=== PATIENT | male | born 1985 | race Two or more races ===

== ENCOUNTER 2017-11-02 06:01 | Day surgery (SDC) | payer OTHER ==
[2017-10-26 09:51] LABS: APPEARANCE,URINE CLEAR; BILIRUBIN,URINE NEGATIVE (NEGATIVE); COLOR,URINE YELLOW; GLUCOSE, URINE NEGATIVE (NEGATIVE); KETONES,URINE NEGATIVE (NEGATIVE); LEUKOCYTE ESTERASE,URINE NEGATIVE (NEGATIVE); NITRITE,URINE NEGATIVE (NEGATIVE); PROTEIN,URINE NEGATIVE (NEGATIVE); UROBILINOGEN,URINE NEGATIVE mg/dL (<2.0)
[2017-10-26 09:51] LABS: ABSOLUTE BASOPHILS # (AUTO) 0.1 10^3/uL (0.0-0.2); ABSOLUTE EOSINOPHILS # (AUTO) 0.2 10^3/uL (0.0-0.6); ABSOLUTE LYMPHOCYTES (AUTO) 3.3 10^3/uL (0.5-4.7); ABSOLUTE NEUT (AUTO) 4.5 10^3/uL (1.7-8.2); BASOPHILS % (AUTO) 0.6 % (0-2); EOSINOPHILS % (AUTO) 2.2 % (0-6); HEMATOCRIT 44.5 % (37.9-51.0); HEMOGLOBIN 15.2 g/dL (13.5-17.0); LYMPHOCYTES % (AUTO) 36.6 % (13-45); MEAN CORPUSCULAR HEMOGLOBIN 27.4 pg (27.0-33.4); MEAN CORPUSCULAR HGB CONC 34.2 g/dL (32.0-36.0); MEAN CORPUSCULAR VOLUME 80 fl (80-97); MONOCYTES % (AUTO) 10.8 % (3-13); PLATELET COUNT 283 10^3/uL (150-450); RED BLOOD COUNT 5.55 10^6/uL (4.35-5.55); RED CELL DISTRIBUTION WIDTH 13.3 % (11.5-14.0); SEGMENTED NEUTROPHILS % (AUTO) 49.8 % (42-78); TOTAL CELLS COUNTED % (AUTO) 100 %
[2017-10-26 10:18] LABS: ALANINE AMINOTRANSFERASE 44 U/L (21-72); ALBUMIN 4.2 g/dL (3.5-5.0); ALKALINE PHOSPHATASE 43 U/L (38-126); ANION GAP 11 (5-19); ASPARTATE AMINO TRANSFERASE 22 U/L (17-59); BILIRUBIN,DIRECT 0.4 mg/dL (0.0-0.4); BILIRUBIN,TOTAL 0.6 mg/dL (0.2-1.3); BLOOD UREA NITROGEN 26 mg/dL (7-20); CALCIUM 10.1 mg/dL (8.4-10.2); CARBON DIOXIDE 28 mmol/L (22-30); CHLORIDE 101 mmol/L (98-107); GLUCOSE 83 mg/dL (75-110); POTASSIUM 4.3 mmol/L (3.6-5.0); SODIUM 139.6 mmol/L (137-145); TOTAL PROTEIN 6.9 g/dL (6.3-8.2)
--- NOTE | 2017-10-26 10:49 | RADIOLOGY REPORT (SQ) ---
EXAM DESCRIPTION: CHEST PA/LATERAL COMPLETED DATE/TIME: 10/26/2017 9:46 am REASON FOR STUDY: PRE OP COMPARISON: None. EXAM PARAMETERS: NUMBER OF VIEWS: two views TECHNIQUE: Digital Frontal and Lateral radiographic views of the chest acquired. RADIATION DOSE: NA LIMITATIONS: none FINDINGS: LUNGS AND PLEURA: No opacities, masses or pneumothorax. No pleural effusion. MEDIASTINUM AND HILAR STRUCTURES: No masses or contour abnormalities. HEART AND VASCULAR STRUCTURES: Heart normal size. No evidence for failure. BONES: No acute findings. HARDWARE: None in the chest. OTHER: No other significant finding. IMPRESSION: NO SIGNIFICANT RADIOGRAPHIC FINDING IN THE CHEST. TECHNICAL DOCUMENTATION: JOB ID: [id number] [employer] [place]- All Rights Reserved Reading location - IP/workstation name: [email or web address]
--- NOTE | 2017-10-26 12:57 | EKG REPORT ---
SEVERITY:- ABNORMAL ECG - SINUS RHYTHM NONSPECIFIC ST-T CHANGES- INFERIOR LEADS : Confirmed by: Ruben Hunter MD 26-Oct-2017 12:56:59
[~2017-11-02 06:01] MED LIST: CEFAZOLIN 2 GM/D5W RTU 2 GM/50 ML RTUPB IV PRN; CEFAZOLIN SODIUM 2 GM in NORMAL SALINE 100 ML IV PRN; LACTATED RINGERS 1000 ML IV PRN; LIDOCAINE 0.5% INJ-PF (5 MG/ML) 50 ML SDV SUBCUT PRN
[2017-11-02] MEDS ORDERED: FENTANYL CITRATE INJ/PF 100 MCG/2 ML AMPUL ONE ×2 (06:24→10:00)
[2017-11-02] MEDS ORDERED: LIDOCAINE 2% INJ-PF (20 MG/ML) 10 ML AMPUL ONE (06:24)
[2017-11-02] MEDS ORDERED: DEXAMETHASONE SOD PHOSPHATE INJ 4 MG/1 ML VIAL ONE (06:25)
[2017-11-02] MEDS ORDERED: MIDAZOLAM 2 MG/2 ML INJ ONE (06:25)
[2017-11-02] MEDS ORDERED: ACETAMINOPHEN 100 ML IV ONE (06:25)
[2017-11-02] MEDS ORDERED: ONDANSETRON HCL INJ/PF 4 MG/2 ML SDV ONE (06:25)
[2017-11-02] MEDS ORDERED: PROPOFOL INJ 200 MG/20 ML VIAL IV ONE (06:25)
[2017-11-02] MEDS ORDERED: BUPIVACAINE HCL 0.5 % INJ/PF 30 ML SDV ONE (06:29)
[2017-11-02] MEDS ORDERED: FAMOTIDINE INJ/PF 20 MG/2 ML SDV IV ONE (07:24)
[2017-11-02] MEDS ORDERED: OXYCODONE-ACETAMINOPHEN 5-325 MG TABLET PO PRN ×3 (08:11→10:06)
[2017-11-02] MEDS ORDERED: PROMETHAZINE HCL INJ 25 MG/1 ML VIAL IV PRN ×2 (08:11)
[2017-11-02] MEDS ORDERED: MORPHINE SULFATE 10 MG/ML INJ IV PRN (08:11)
[2017-11-02] MEDS ORDERED: MEPERIDINE HCL/PF INJ 25 MG/1 ML DISP.SYRIN IV PRN (08:11)
[2017-11-02] MEDS ORDERED: FENTANYL CITRATE INJ/PF 100 MCG/2 ML AMPUL IV PRN ×4 (08:11→10:06)
[2017-11-02] MEDS ORDERED: DIPHENHYDRAMINE HCL 50 MG/ML VIAL IV PRN (08:11)
--- NOTE | 2017-11-02 09:35 | Discharge Summary ---
Discharge Summary (SDC) - Discharge Final Diagnosis: Left wrist hamate hook fracture Left wrist central TFCC tear Date of Surgery: 11/02/17 Discharge Date: 11/02/17 Condition: Good Treatment or Instructions: Schedule Follow Up w/ Dr. Jim Fuentes @ [facility] for Surgery to be seen in 10-14 days or as scheduled [place]: [place]: [place]: Ice and elevate Keep splint clean/dry/intact. If your fingers become numb please unwrap the [place] wrap but leave the splint in place, if the sensation does not return within 30 minutes please return to the emergency department. May begin finger range of motion attempting to make full fist. Please use ibuprofen (Motrin or Advil) 600-800 mg every 8 hours as needed for pain or fever DO NOT TAKE w/ TORADOL may use once TORADOL complete. You may also use acetaminophen (Tylenol) 1000 mg every 4-6 hours as needed for pain or fever. Please be aware that many medications contain acetaminophen, do not exceed a total of 1000 mg of acetaminophen every 6 hours. If ibuprofen and acetaminophen are not sufficient for your pain you may take the Percocet/[place]. Please be aware that the Percocet/[place] does contain Tylenol. Stool softener of choice when on pain medication. Prescriptions: Ketorolac Tromethamine [Toradol 10 mg Tablet] 10 mg PO Q8 #10 tablet Oxycodone HCl/Acetaminophen [Percocet 5-325 mg Tablet] 1 - 2 tab PO ASDIR PRN # 45 tablet PRN Reason: Discharge Diet: As Tolerated Respiratory Treatments at Home: Deep Breathing/Coughing Discharge Activity: No Lifting Over 10 Pounds, No Lifting/Push/Pulling Home Care Assistance: None Needed Report the Following to Your Physician Immediately: Shortness of Breath, Fever over 101 Degrees, Unusual Bleeding, Redness, Warmth, Increased Soreness, Drainage-Yellow
--- NOTE | 2017-11-02 09:47 | Operative Report ---
Operative Report DATE OF SURGERY: 11/02/17 PREOPERATIVE DIAGNOSIS: 1. Left hamate hook fracture. 2. Left wrist TFCC tear POSTOPERATIVE DIAGNOSIS: Same OPERATION: 1. Ulnar neurolysis with excision hamate hook. 2. Central 3rd TFCC tear SURGEON: NOLAN HUYNH [employer] MECHANIC: ANN-MARIE GUPTA ANESTHESIA: GA COMPLICATIONS: None ESTIMATED BLOOD LOSS: Minimal PROCEDURE: Indication for above procedure: Pleasant 32yo who sustained an injury [place] when a large truck trunk fell onto his left wrist. Patient had considerable swelling and ultimately had radiographs and MRI performed demonstrating hamate hook fracture and TFCC tear. Patient underwent occupational therapy initially to improve his swelling but continued to have residual discomfort. We discussed treatment options including operative versus nonoperative intervention. Risks and benefits were explained patient verbalized understanding consented for the procedure. Procedure In Detail: Patient was seen and evaluated in the preoperative holding area. The LEFT upper extremity was initialized and marked. Patient received 2g of Ancef IV for bacterial prophylaxis. Patient was taken back to the operative room where transferred to the operative table and placed under general anesthesia. Once they were adequately anesthetized a nonsterile tourniquet was placed on the upper extremity. A surgical team debriefing was performed ensuring all instrumentation was available, the surgical procedure was discussed with possible concerns reviewed. The upper extremity was prepped with chlorhexidine and alcohol and draped in a sterile fashion. A timeout was done identifying correct patient, procedure and extremity everyone in attendance agree with this and verbalized no concerns. Prior to proceeding with the operative procedure examination under anesthesia was performed of the DRUJ there was equal DRUJ instability bilaterally of the operative left and right nonoperative extremity. Patient was placed in the [place] wrist tower with 15 pounds of traction. The extremity was exsanguinated the tourniquet was inflated to 250 mmHg. A 3-4 portal was established via blunt dissection. Arthroscope was introduced into the radiocarpal joint. Via triangulation a 6U portal was established. Diagnostic arthroscopy demonstrated moderate synovitis of the radiocarpal and ulnocarpal joints no evidence of degenerative changes. No evidence of membranous SL tear appreciated. Arthroscopic shaver was introduced performing a partial synovectomy along the radiocarpal joint. Inspection of the ulnar carpal joint demonstrated a TFCC tear along the central third within the avascular zone. The central tear was then debrided. Given the fact patient had no evidence of DRUJ instability I do not feel open repair was required. Partial synovectomy was performed. No evidence of DRUJ instability was appreciated. I then turned my attention to the midcarpal joint. A radial midcarpal portal was established and via triangulation a ulnar midcarpal portal established. Arthroscopic shaver introduced a was evidence of synovitis along the dorsum of the triquetrum with a small chip fracture but with a probe there was no evidence of LT or SL widening or instability there was mild hemorrhage indicative of a Nacho I tear. The edges of the SL and LT were then debrided. I then turned my attention to hamate hook excision. Longitudinal skin incision was made from the hamate hook to just proximal to the wrist flexion crease. Blunt dissection was performed proximally at the wrist flexion crease to identify the ulnar neurovascular bundle. The ulnar nerve was then neurolysed distally to identify the superficial sensory and the deep motor branches. I continue to track the deep motor branch as it entered the fascia overlying fascia was released along with a portion of the piso hamate ligament to further expose the hamate hook. The motor branch continue to be followed as it continued around the hamate hook. Once it was adequately isolated the periosteum overlying the hamate hook was elevated to expose the hamate hook fracture which was excised. The edges of the fracture were then smoothed with a rasp to avoid flexor tendon irritation. The wound was then copiously irrigated with normal saline. Any peripheral veins were controlled with bipolar cautery. The periosteum overlying the remnant hamate was closed to avoid postoperative irritation. The subcutaneous tissues were then closed with interrupted 4-0 Monocryl suture. Skin was closed with 4-0 nylon suture. 20 cc of 0.5% Marcaine without epinephrine was injected for postoperative pain control. Patient was placed in a volar splint postoperatively and tourniquet deflated patient good peripheral perfusion.. Sponge counts, instrument counts, needle counts counts were correct. Patient was then awoken from anesthesia. Transferred from the operating room table to the operating room stretcher. There was no intraoperative complications patient tolerated procedure well stable to PACU. Postoperative plan: Patient will begin occupational therapy for digit range of motion edema control. We will continue immobilization for 4 weeks postoperatively.
[2017-11-02] MEDS ORDERED: ONDANSETRON HCL INJ/PF 4 MG/2 ML SDV IV PRN (10:06)
--- NOTE | 2017-11-02 10:31 | RADIOLOGY REPORT (SQ) ---
EXAM DESCRIPTION: NO CHARGE FLUORO TO 1 HR; WRIST LEFT 2 VIEWS COMPLETED DATE/TIME: 11/02/2017 10:10 am REASON FOR STUDY: LT WRIST ARTHROPLASTY/DEBREDMENT S62.143A DISP FX OF BODY OF HAMATE BONE, UNSP WRIST, INIT FO COMPARISON: None. FLUOROSCOPY TIME: 17 seconds 4 images saved to PACS. TECHNIQUE: Intra-operative images acquired during surgical procedure to evaluate progress. NUMBER OF IMAGES: 4 LIMITATIONS: None FINDINGS: Radiographs of the left wrist 3 projections IMPRESSION: IMAGE(S) OBTAINED DURING PROCEDURE. COMMENT: Quality ID 145: Final reports for procedures using fluoroscopy that document radiation exposure indices, or exposure time and number of fluorographic images (if radiation exposure indices are not available) Please consult full operative report of the attending physician for description of the procedure. TECHNICAL DOCUMENTATION: JOB ID: [id number] [employer]- All Rights Reserved Reading location - IP/workstation name: [email or web address]
--- NOTE | 2017-11-02 10:31 | RADIOLOGY REPORT (SQ) ---
EXAM DESCRIPTION: NOT FOR OR FLUORO TO 1 HR; WRIST LEFT 2 VIEWS COMPLETED DATE/TIME: 11/02/2017 10:10 am REASON FOR STUDY: LT WRIST ARTHROPLASTY/DEBREDMENT S62.143A DISP FX OF BODY OF HAMATE BONE, UNSP WR IST, INIT FO COMPARISON: None. FLUOROSCOPY TIME: 17 seconds 4 images saved to PACS. TECHNIQUE: Intra-operative images acquired during surgical procedure to evaluate progress. NUMBER OF IMAGES: 4 LIMITATIONS: None FINDINGS: Radiographs of the left wrist 3 projections IMPRESSION: IMAGE(S) OBTAINED DURING PROCEDURE. COMMENT: Quality ID 145: Final reports for procedures using fluoroscopy that document radiation exp osure indices, or exposure time and number of fluorographic images (if radiation exposure indices are not available) Please consult full operative report of the attending physician for description of the procedure. TECHNICAL DOCUMENTATION: JOB ID: [id number] [employer]- All Rights Reserved Reading location - IP/workstation name: [email or web address]
[2017-11-02 12:06] VITALS: BP 130/79
[2017-11-02] MEDS ORDERED: SUCCINYLCHOLINE CHLORIDE INJ 200 MG/10 ML VIAL ONE (12:50)
== END 2017-11-02 12:00 | disposition home or self-care (01) ==
LOC: OROUT 06:01 → EDBD 08:00 → OROUT 12:00
PROVIDERS: ATTEND Orthopaedic Surgery
PROC: 0RBP4ZZ Excision of Left Wrist Joint, Percutaneous Endoscopic Approach (ICD-10-PCS; principal; 2017-11-02 08:00)
PROC: 01N40ZZ Release Ulnar Nerve, Open Approach (ICD-10-PCS; 2017-11-02 08:00)
DX: S62.151 Displaced fracture of hook process of hamate [unciform] bone, right wrist (principal); S63.502D Unspecified sprain of left wrist, subsequent encounter; W20.8XXD Other cause of strike by thrown, projected or falling object, subsequent encounter; M25.332 Other instability, left wrist; Y99.0 Civilian activity done for income or pay; S43.439A Superior glenoid labrum lesion of unspecified shoulder, initial encounter; Z79.1 Long term (current) use of non-steroidal anti-inflammatories (NSAID); M75.112 Incomplete rotator cuff tear or rupture of left shoulder, not specified as traumatic; I10 Essential (primary) hypertension
CPT/HCPCS: 93005; 36415; 85025; 80053; 81001; 71046; 73100; 93010; 29846; 64719; J2250; J3490 ×2; J1100; J3010; J0330; J2405; J2704; S0028; J0690; J0131; 01830; 76000

== ENCOUNTER → 2018-02-17 | Outpatient (CLI) | payer OTHER ==
[2018-02-17 13:53] LABS: ABSOLUTE BASOPHILS # (AUTO) 0.1 10^3/uL (0.0-0.2); ABSOLUTE EOSINOPHILS # (AUTO) 0.2 10^3/uL (0.0-0.6); ABSOLUTE LYMPHOCYTES (AUTO) 1.8 10^3/uL (0.5-4.7); ABSOLUTE MONOCYTES (AUTO) 0.6 10^3/uL (0.1-1.4); ABSOLUTE NEUT (AUTO) 4.1 10^3/uL (1.7-8.2); BASOPHILS % (AUTO) 0.9 % (0-2); EOSINOPHILS % (AUTO) 2.5 % (0-6); HEMATOCRIT 45.4 % (37.9-51.0); HEMOGLOBIN 15.5 g/dL (13.5-17.0); LYMPHOCYTES % (AUTO) 26.5 % (13-45); MEAN CORPUSCULAR HEMOGLOBIN 27.5 pg (27.0-33.4); MEAN CORPUSCULAR HGB CONC 34.1 g/dL (32.0-36.0); MEAN CORPUSCULAR VOLUME 81 fl (80-97); MONOCYTES % (AUTO) 8.7 % (3-13); PLATELET COUNT 247 10^3/uL (150-450); RED BLOOD COUNT 5.63 10^6/uL (4.35-5.55); RED CELL DISTRIBUTION WIDTH 12.9 % (11.5-14.0); SEGMENTED NEUTROPHILS % (AUTO) 61.4 % (42-78); TOTAL CELLS COUNTED % (AUTO) 100 %; WHITE BLOOD COUNT 6.7 10^3/uL (4.0-10.5)
[2018-02-17 14:15] LABS: ANION GAP 13 (5-19); BLOOD UREA NITROGEN 15 mg/dL (7-20); CALCIUM 9.6 mg/dL (8.4-10.2); CARBON DIOXIDE 23 mmol/L (22-30); CHLORIDE 104 mmol/L (98-107); GLUCOSE 89 mg/dL (75-110); POTASSIUM 4.5 mmol/L (3.6-5.0); SODIUM 139.7 mmol/L (137-145)
--- NOTE | 2018-02-17 22:31 | EKG REPORT ---
SEVERITY:- ABNORMAL ECG - SINUS RHYTHM NONSPECIFIC INTRAVENTRICULAR CONDUCTION DELAY : Confirmed by: Benjamín Aguilar 17-Feb-2018 22:31:03
== END ==
LOC: OD 13:06
PROVIDERS: ATTEND Orthopaedic Surgery
DX: Z01.810 Encounter for preprocedural cardiovascular examination (principal); Z01.812 Encounter for preprocedural laboratory examination; Z01.818 Encounter for other preprocedural examination
CPT/HCPCS: 36415; 80048; 85025; 93005; 93010

== ENCOUNTER 2018-10-04 06:08 | Day surgery (SDC) | payer OTHER ==
[2018-09-27 10:15] LABS: HEMOGLOBIN 15.4 g/dL (13.5-17.0); MEAN CORPUSCULAR HEMOGLOBIN 27.1 pg (27.0-33.4); MEAN CORPUSCULAR HGB CONC 34.3 g/dL (32.0-36.0); MEAN CORPUSCULAR VOLUME 79 fl (80-97); PLATELET COUNT 278 10^3/uL (150-450); RED CELL DISTRIBUTION WIDTH 13.5 % (11.5-14.0); WHITE BLOOD COUNT 8.1 10^3/uL (4.0-10.5)
[2018-09-27 10:23] LABS: APPEARANCE,URINE CLEAR; BILIRUBIN,URINE NEGATIVE (NEGATIVE); COLOR,URINE YELLOW; GLUCOSE, URINE NEGATIVE (NEGATIVE); KETONES,URINE NEGATIVE (NEGATIVE); LEUKOCYTE ESTERASE,URINE NEGATIVE (NEGATIVE); NITRITE,URINE NEGATIVE (NEGATIVE); PROTEIN,URINE NEGATIVE (NEGATIVE); URINE SPECIFIC GRAVITY 1.017; UROBILINOGEN,URINE NEGATIVE mg/dL (<2.0)
[2018-09-27 10:39] LABS: ANION GAP 11 (5-19); BLOOD UREA NITROGEN 13 mg/dL (7-20); CALCIUM 10.2 mg/dL (8.4-10.2); CARBON DIOXIDE 25 mmol/L (22-30); CHLORIDE 102 mmol/L (98-107); GLUCOSE 90 mg/dL (75-110); POTASSIUM 4.7 mmol/L (3.6-5.0); SODIUM 137.9 mmol/L (137-145)
--- NOTE | 2018-09-27 12:07 | EKG REPORT ---
SEVERITY:- BORDERLINE ECG - SINUS RHYTHM BORDERLINE T ABNORMALITIES, INFERIOR LEADS : Confirmed by: Ruben Hunter MD 27-Sep-2018 12:07:37
[~2018-10-04 06:08] MED LIST changes: +CEFAZOLIN 2 GM/D5W RTU 2 GM/50 ML RTUPB IV ONE; -CEFAZOLIN SODIUM 2 GM in NORMAL SALINE 100 ML IV PRN
[2018-10-04] MEDS ORDERED: LIDOCAINE 0.5% INJ-PF (5 MG/ML) 50 ML SDV ONE (06:13)
[2018-10-04] MEDS ORDERED: MIDAZOLAM 2 MG/2 ML INJ ONE (06:15)
[2018-10-04] MEDS ORDERED: ONDANSETRON HCL INJ/PF 4 MG/2 ML SDV ONE (06:15)
[2018-10-04] MEDS ORDERED: DEXAMETHASONE SOD PHOSPHATE INJ 4 MG/1 ML VIAL ONE (06:15)
[2018-10-04] MEDS ORDERED: FENTANYL CITRATE INJ/PF 100 MCG/2 ML AMPUL ONE ×2 (06:15→10:53)
[2018-10-04] MEDS ORDERED: ACETAMINOPHEN 1,000 MG/100 ML RTUPB IV ONE (06:16)
[2018-10-04] MEDS ORDERED: PROPOFOL INJ 200 MG/20 ML VIAL IV ONE (06:16)
[2018-10-04] MEDS ORDERED: BUPIVACAINE HCL 0.5 % INJ/PF 30 ML SDV ONE (06:28)
[2018-10-04] MEDS ORDERED: MORPHINE SULFATE 10 MG/ML INJ IV PRN ×2 (08:33→10:59)
[2018-10-04] MEDS ORDERED: MEPERIDINE HCL/PF INJ 25 MG/1 ML DISP.SYRIN IV PRN (08:33)
[2018-10-04] MEDS ORDERED: PROMETHAZINE HCL INJ 25 MG/1 ML VIAL IV PRN ×2 (08:33)
[2018-10-04] MEDS ORDERED: ONDANSETRON HCL INJ/PF 4 MG/2 ML SDV IV PRN ×2 (08:33→10:59)
[2018-10-04] MEDS ORDERED: FENTANYL CITRATE INJ/PF 100 MCG/2 ML AMPUL IV PRN ×2 (08:33)
[2018-10-04] MEDS ORDERED: DIPHENHYDRAMINE HCL 50 MG/ML VIAL IV PRN (08:33)
[2018-10-04] MEDS: FENTANYL CITRATE INJ/PF 100 MCG/2 ML AMPUL IV PRN ×2 (10:55→11:05)
[2018-10-04] MEDS ORDERED: OXYCODONE-ACETAMINOPHEN 5-325 MG TABLET PO PRN (10:59)
--- NOTE | 2018-10-04 10:59 | Operative Report ---
Operative Report DATE OF SURGERY: 10/04/18 PREOPERATIVE DIAGNOSIS: Chronic DRUJ instability left wrist POSTOPERATIVE DIAGNOSIS: Same OPERATION: Left wrist DRUJ reconstruction utilizing allograft SURGEON: NOLAN CHAKRABORTY ANESTHESIA: GA COMPLICATIONS: None ESTIMATED BLOOD LOSS: Minimal PROCEDURE: Indication for above procedure: 33-year-old male who sustained an injury at work approximate 1 year ago resulting in a hamate hook fracture, TFCC tear along with rotator cuff tear. Patient underwent debridement of his TFCC and hamate hook excision which did provide some improvement of patient's discomfort however continued to have ulnar-sided wrist pain with clinically evident DRUJ instability. Despite conservative efforts patient continued to have pain and instability at that point decision was made to proceed with operative intervention. Risks and benefits were explained to the patient patient verbalized understanding consented for the procedure. Procedure In Detail: Patient was seen and evaluated in the preoperative holding area. The LEFT upper extremity was initialized and marked. Patient received 2g of Ancef IV for bacterial prophylaxis. Patient was taken back to the operative room where transferred to the operative table and placed under general anesthesia. Once they were adequately anesthetized a nonsterile tourniquet was placed on the upper extremity. A surgical team debriefing was performed ensuring all instrumentation was available, the surgical procedure was discussed with possible concerns reviewed. The upper extremity was prepped with chlorhexidine and alcohol and draped in a sterile fashion. A timeout was done identifying correct patient, procedure and extremity everyone in attendance agree with this and verbalized no concerns. The extremity was exsanguinated the tourniquet was inflated to 250 mmHg. Longitudinal skin incision was made over the DRUJ. Blunt dissection was performed. Any peripheral veins were coagulated bipolar cautery. Fifth dorsal compartment was then opened and EDM retracted. The underlying capsule of the DRUJ was then opened and then a 90 degree incision was made proximal to the TFCC exposing the undersurface and foveal attachments of the ligamentum subcruentum. There is significant DRUJ instability. Once this was isolated the fourth dorsal compartment was elevated to expose the distal radius dorsally. A K wire was then placed proximal to the radiocarpal joint and radial to the DRUJ. C-arm fluoroscopy was obtained confirming appropriate placement once adequate placement was noted a 1.7 cannulated drill was placed and then overdrilled with a 3.0 mm drill. Volar skin incision was made between the FCU and flexor tendons. Blunt dissection was performed. Ulnar neurovascular bundle identified and retracted in the ulnar direction to expose the volar distal radius. K wire was then passed to identify the volar distal radial tunnel. The foveal attachment at the distal ulna was once again visualized and a K wire was placed obliquely exiting the ulnar cortex. C-arm fluoroscopy was utilized confirming appropriate placement of the guidepin and tunnel on AP and lateral projection. This was then overdrilled with a 3.5 mm cannulated drill. Ulnar incision was made dorsal ulnar sensory branch was retracted to expose the ulnar tunnel. On the back table a anterior tibialis allograft was prepared obtaining a 3 mm x 15 mm graft. The proximal distal aspect was secured with 4 oh fiber loop suture. This was then placed in a saline soaked sponge for later usage. A suture passer was then placed from dorsal to volar through the distal radius tunnel. The anterior tibialis allograft was then passed from volar to dorsal. The volar limb was then passed through the ulnar carpal ligaments. Suture passer was then placed from proximal to distal through the ulnar tunnel in both limbs of the allograft were retrieved. Attention was then placed and held by an pizza hut assistant and examination demonstrated improved stability of the DRUJ in terms of dorsal and volar subluxation. Both suture limbs were then secured to each other with a 2 oh fiber loop suture. The 4-0 fiber loop with 2 oh fiber loop suture were then placed within a 3.75 x 8 mm swivel lock anchor which was placed through the ulnar cortex while maintaining traction with the wrist at neutral position. At completion patient had good stability in neutral, pronation and supination. To provide further fixation the tenodesis screw from the 3.75 x 8 mm swivel lock anchor was placed into the ulnar external. Adequate stability was noted throughout pronation, supination and neutral once again. Wounds were then copiously irrigated with normal saline. The capsule of the DRUJ was closed with interrupted 2-0 Ethibond suture. EDM tendon was left outside the retinaculum and the retinaculum was closed with 3-0 Vicryl suture. Skin was closed with 4-0 subcuticular suture reinforced with Dermabond and Steri-Strips. Tourniquet was deflated. 30 cc of 0.5% bupivacaine without epinephrine was injected for postoperative pain control. Patient was placed in a sugar tong splint maintaining the neutral position. Sponge counts, instrument counts, needle counts were correct. Patient was then awoken from anesthesia. Transferred from the operating room table to the operating room stretcher. There was no intraoperative complications patient tolerated procedure well stable to PACU. Postop plan: Patient follow-up the office in 2 weeks at which point he will placed in a long- arm cast. At 4 weeks postoperatively patient will be set up for occupational therapy and transition to a Cranks splint and begin wrist flexion/extension. Patient will begin pronation/supination at 6 weeks postoperatively.
[2018-10-04] MEDS ORDERED: MORPHINE SULFATE 10 MG/ML INJ ONE (11:14)
--- NOTE | 2018-10-04 11:23 | RADIOLOGY REPORT (SQ) ---
EXAM DESCRIPTION: WRIST LEFT 2 VIEWS; NO CHG FLUORO COMPLETED DATE/TIME: 10/04/2018 10:47 am REASON FOR STUDY: LEFT WRIST ARTHROSCOPY WITH RECONSTRUCTION S69.82XS OTH INJURIES OF LEFT WRIST, H AND AND FINGER(S), SEQ S63.015S DISLOC OF DISTAL RADIOULNAR JOINT OF LEFT WRIST, SE COMPARISON: None. FLUOROSCOPY TIME: 40 seconds 2 images saved to PACS. TECHNIQUE: Intra-operative images acquired during surgical procedure to evaluate progress. NUMBER OF IMAGES: 2 LIMITATIONS: None. FINDINGS: Limited fluoroscopic images obtained evaluate operative progress. Please see operative re port for detailed description of procedure. IMPRESSION: IMAGE(S) OBTAINED DURING PROCEDURE. COMMENT: Quality ID 145: Final reports for procedures using fluoroscopy that document radiation exp osure indices, or exposure time and number of fluorographic images (if radiation exposure indices are not available) Please consult full operative report of the attending physician for description of the procedure. TECHNICAL DOCUMENTATION: JOB ID: [id number]- All Rights Reserved Reading location - IP/workstation name: [email or web address]
--- NOTE | 2018-10-04 11:23 | RADIOLOGY REPORT (SQ) ---
EXAM DESCRIPTION: WRIST LEFT 2 VIEWS; NO CHG FLUORO COMPLETED DATE/TIME: 10/04/2018 10:47 am REASON FOR STUDY: LEFT WRIST ARTHROSCOPY WITH RECONSTRUCTION S69.82XS OTH INJURIES OF LEFT WRIST, H AND AND FINGER(S), SEQ S63.015S DISLOC OF DISTAL RADIOULNAR JOINT OF LEFT WRIST, SE COMPARISON: None. FLUOROSCOPY TIME: 40 seconds 2 images saved to PACS. TECHNIQUE: Intra-operative images acquired during surgical procedure to evaluate progress. NUMBER OF IMAGES: 2 LIMITATIONS: None. FINDINGS: Limited fluoroscopic images obtained evaluate operative progress. Please see operative re port for detailed description of procedure. IMPRESSION: IMAGE(S) OBTAINED DURING PROCEDURE. COMMENT: Quality ID 145: Final reports for procedures using fluoroscopy that document radiation exp osure indices, or exposure time and number of fluorographic images (if radiation exposure indices are not available) Please consult full operative report of the attending physician for description of the procedure. TECHNICAL DOCUMENTATION: JOB ID: [id number] [employer]- All Rights Reserved Reading location - IP/workstation name: [email or web address]
[2018-10-04] MEDS ORDERED: OXYCODONE-ACETAMINOPHEN 5-325 MG TABLET ONE (11:54)
[2018-10-04 13:15] VITALS: BP 128/68
[2018-10-04] MEDS ORDERED: SUCCINYLCHOLINE CHLORIDE INJ 200 MG/10 ML VIAL ONE (13:48)
--- NOTE | 2018-10-06 16:01 | Discharge Summary ---
Discharge Summary (SDC) - Discharge Final Diagnosis: Chronic DRUJ instability Date of Surgery: 10/04/18 Discharge Date: 10/04/18 Condition: Good Treatment or Instructions: Schedule Follow Up w/ Dr. Jim Fuentes @ [facility] for Surgery to be seen in 10-14 days or as scheduled [place]: [place]: [place]: Ice and elevate Keep splint clean/dry/intact, do not remove. If your fingers become numb please unwrap the [place] wrap but leave the splint in place, if the sensation does not return within 30 minutes please return to the emergency department. May begin finger range of motion attempting to make full fist. Please use ibuprofen (Motrin or Advil) 600-800 mg every 8 hours as needed for pain or fever DO NOT TAKE w/ TORADOL may use once TORADOL complete. You may also use acetaminophen (Tylenol) 1000 mg every 4-6 hours as needed for pain or fever. Please be aware that many medications contain acetaminophen, do not exceed a total of 1000 mg of acetaminophen every 6 hours. If ibuprofen and acetaminophen are not sufficient for your pain you may take the Percocet/[place]. Please be aware that the Percocet/[place] does contain Tylenol. Stool softener of choice when on pain medication. USE OF [id number] IBUPROFEN: Ibuprofen (Advil, Nuprin, Medipren, Motrin IB) is a medication for fever and pain control. In addition, it has anti- inflammatory effects which may be beneficial, especially in the treatment of injuries. It's best to take ibuprofen with food. Persons with ulcer disease or allergy to aspirin should notify their physician of this before taking ibuprofen. Ibuprofen can be given every four to six hours, for a total of four doses daily. Age Pain or fever dose Antiinflammatory dose 6-8 yr 200 mg (1 tab) 200 mg (1 tab) 9-11 yr 200 mg (1 tab) 200-400 mg (1-2 tab) 11-14 yr 200-400 mg (1-2 tab) 400 mg (2 tab) 15-adult 400 mg (2 tab) 600 mg (3 tab) ORAL NARCOTIC MEDICATION: You have been given a prescription for pain control. This medication is a narcotic. It's best taken with food, as nausea can result if taken on an empty stomach. Don't operate machinery or drive within six hours of taking this medication. Do not combine this medicine with alcohol, or with any medication which can cause sedation (such as cold tablets or sleeping pills) unless you get permission from the physician. Narcotics tend to cause constipation. If possible, drink plenty of fluids and eat a diet high in fiber and fruits. Please be aware that prescription narcotics also have the potential for abuse. People become addicted to these medications because of the general sense of wellbeing that they induce. This feeling along with a significant reduction in tension, anxiety, and aggression provides a stimulating seductive quality to these drugs. Once your pain is under control, we encourage you to discard your unused narcotics. Prescriptions: Ketorolac Tromethamine [Toradol 10 mg Tablet] 10 mg PO Q8HP PRN #12 tablet PRN Reason: Oxycodone HCl/Acetaminophen [Percocet 5-325 mg Tablet] 1 tab PO Q6 PRN #25 tab PRN Reason:
== END 2018-10-04 12:50 | disposition home or self-care (01) ==
LOC: OROUT 06:08
PROVIDERS: ATTEND Orthopaedic Surgery
DX: S63.01 Subluxation and dislocation of distal radioulnar joint (principal); X58.XXXS Exposure to other specified factors, sequela; M25.532 Pain in left wrist; S63.502D Unspecified sprain of left wrist, subsequent encounter; M75.122 Complete rotator cuff tear or rupture of left shoulder, not specified as traumatic; I10 Essential (primary) hypertension; E66.9 Obesity, unspecified; Z68.41 Body mass index [BMI] 40.0-44.9, adult; Z01.818 Encounter for other preprocedural examination
CPT/HCPCS: 93010; 93005; 36415; 85027; 80048; 81001; 73100; 25337; C1713 ×2; C1769; J2250; J3490 ×2; J1100; J3010; J2270; J0330; J2405; J2704; J0690; J0131; 01830

== ENCOUNTER 2019-08-15 05:27 | Day surgery (SDC) | payer OTHER, BC ==
[2019-08-08 09:17] LABS: ABSOLUTE BASOPHILS # (AUTO) 0.1 10^3/uL (0.0-0.2); ABSOLUTE EOSINOPHILS # (AUTO) 0.3 10^3/uL (0.0-0.6); ABSOLUTE LYMPHOCYTES (AUTO) 2.5 10^3/uL (0.5-4.7); ABSOLUTE MONOCYTES (AUTO) 0.7 10^3/uL (0.1-1.4); BASOPHILS % (AUTO) 0.9 % (0-2); HEMATOCRIT 47.1 % (37.9-51.0); HEMOGLOBIN 16.1 g/dL (13.5-17.0); LYMPHOCYTES % (AUTO) 29.2 % (13-45); MEAN CORPUSCULAR HEMOGLOBIN 27.3 pg (27.0-33.4); MEAN CORPUSCULAR HGB CONC 34.2 g/dL (32.0-36.0); MEAN CORPUSCULAR VOLUME 80 fl (80-97); MONOCYTES % (AUTO) 8.6 % (3-13); PLATELET COUNT 304 10^3/uL (150-450); RED BLOOD COUNT 5.89 10^6/uL (4.35-5.55); RED CELL DISTRIBUTION WIDTH 13.4 % (11.5-14.0); SEGMENTED NEUTROPHILS % (AUTO) 57.3 % (42-78); TOTAL CELLS COUNTED % (AUTO) 100 %; WHITE BLOOD COUNT 8.7 10^3/uL (4.0-10.5)
[2019-08-08 09:35] LABS: ANION GAP 11 (5-19); BLOOD UREA NITROGEN 16 mg/dL (7-20); CALCIUM 10.2 mg/dL (8.4-10.2); CARBON DIOXIDE 24 mmol/L (22-30); CHLORIDE 104 mmol/L (98-107); GLUCOSE 91 mg/dL (75-110); POTASSIUM 4.5 mmol/L (3.6-5.0)
[~2019-08-15 05:27] MED LIST changes: -CEFAZOLIN 2 GM/D5W RTU 2 GM/50 ML RTUPB IV ONE; -CEFAZOLIN 2 GM/D5W RTU 2 GM/50 ML RTUPB IV PRN; +CEFAZOLIN SODIUM 2 GM in DEXTROSE 5%-WATER 100 ML IV PRN; -LIDOCAINE 0.5% INJ-PF (5 MG/ML) 50 ML SDV SUBCUT PRN
[2019-08-15] MEDS ORDERED: FENTANYL CITRATE INJ/PF 250 MCG/5 ML AMPULE ONE (06:48)
[2019-08-15] MEDS ORDERED: MIDAZOLAM 2 MG/2 ML INJ ONE (06:48)
[2019-08-15] MEDS ORDERED: LIDOCAINE 2% INJ-PF (100 MG/5 ML) SYRINGE ONE (06:48)
[2019-08-15] MEDS ORDERED: DEXAMETHASONE SOD PHOSPHATE INJ 4 MG/1 ML VIAL ONE (06:49)
[2019-08-15] MEDS ORDERED: ONDANSETRON HCL INJ/PF 4 MG/2 ML SDV ONE (06:49)
[2019-08-15] MEDS ORDERED: PROPOFOL INJ 200 MG/20 ML VIAL IV ONE (06:49)
[2019-08-15] MEDS ORDERED: FAMOTIDINE INJ/PF 20 MG/2 ML SDV IV ONE (07:09)
[2019-08-15] MEDS ORDERED: METOCLOPRAMIDE HCL INJ/PF 10 MG/2 ML SDV ONE (07:09)
[2019-08-15] MEDS ORDERED: BUPIVACAINE HCL 0.5 % INJ/PF 30 ML SDV ONE (07:15)
[2019-08-15] MEDS ORDERED: DEXMEDETOMIDINE INJ 80 MCG/20 ML VIAL IV ONE ×2 (08:21→08:23)
[2019-08-15] MEDS ORDERED: PROMETHAZINE HCL INJ 25 MG/1 ML VIAL IV PRN (09:08)
[2019-08-15] MEDS ORDERED: OXYCODONE-ACETAMINOPHEN 5-325 MG TABLET PO PRN ×3 (09:08→10:59)
[2019-08-15] MEDS ORDERED: MEPERIDINE HCL/PF INJ 25 MG/1 ML DISP.SYRIN IV PRN (09:08)
[2019-08-15] MEDS ORDERED: MORPHINE SULFATE 10 MG/ML INJ IV PRN (09:08)
[2019-08-15] MEDS ORDERED: ONDANSETRON HCL INJ/PF 4 MG/2 ML SDV IV PRN ×2 (09:08→10:59)
[2019-08-15] MEDS ORDERED: FENTANYL CITRATE INJ/PF 100 MCG/2 ML AMPUL IV PRN ×3 (09:08)
[2019-08-15] MEDS ORDERED: DIPHENHYDRAMINE HCL 50 MG/ML VIAL IV PRN (09:08)
[2019-08-15] MEDS ORDERED: GLYCOPYRROLATE 1 MG/5 ML VIAL ONE (09:42)
[2019-08-15] MEDS ORDERED: NEOSTIGMINE METHYLSULFATE 10 MG/10 ML VIAL ONE (09:42)
[2019-08-15] MEDS ORDERED: HYDROMORPHONE HCL INJ/PF 2 MG/ML AMPULE ONE (09:57)
[2019-08-15] MEDS ORDERED: HYDROMORPHONE HCL INJ/PF 2 MG/ML AMPULE IV PRN (10:59)
--- NOTE | 2019-08-15 10:59 | Operative Report ---
Operative Report DATE OF SURGERY: 08/15/19 PREOPERATIVE DIAGNOSIS: Left cubital tunnel syndrome. Left elbow posterior imp ingement/triceps tendinosis. Left hamate hook nonunion POSTOPERATIVE DIAGNOSIS: Same OPERATION: Left elbow arthroscopy with debridement. Left cubital tunnel release. Left ulnar neurolysis with revision hamate hook excision SURGEON: NOLAN CHAKRABORTY ANESTHESIA: GA COMPLICATIONS: None ESTIMATED BLOOD LOSS: Minimal PROCEDURE: Indication for above procedure: 34-year-old male who sustained a work-related injury to his left upper extremity which resulted in multiple musculoskeletal injuries. Patient underwent previous hamate hook excision but continued to have pain CT scan demonstrated residual nonunion of the hamate hook and thus decision was made to proceed with revision excision. Furthermore patient had findings of cubital tunnel syndrome on examination along with impingement of the posterior compartment of the elbow with small osteophytes noted on CT scan. At that point decision was made to proceed with operative intervention of the hamate hook, cubital tunnel and left elbow concomitantly. Risk and benefits of surgical procedure were explained patient verbalized understanding consented for surgical procedure. Procedure In Detail: Patient was seen and evaluated in the preoperative holding area. The Left upper extremity was initialized and marked. Patient received 2g of Ancef IV for bacterial prophylaxis. Patient was taken back to the operative room where transferred to the operative table and placed under general anesthesia. Once they were adequately anesthetized patient placed in the lateral position. Cervical spine was placed in neutral position all bony prominences were padded including nonoperative upper extremity and bilateral lower extremity. A surgical team debriefing was performed ensuring all instrumentation was available, the surgical procedure was discussed with possible concerns reviewed. The upper extremity was prepped with ChloraPrep draped in a sterile fashion. A timeout was done identifying correct patient, procedure and extremity everyone in attendance agree with this and verbalized no concerns. Extremity was exsanguinated and tourniquet was inflated to 250 mmHg. A total of 25 cc of saline was injected into the soft but intra-articularly appropriate placement was confirmed with spontaneous extension. A proximal anterior medial portal was established 2 cm proximal and 1 cm anterior to the medial epicondyle blunt dissection was performed with a hemostat medial intermuscular septum was identified and arthroscope introduced into the elbow joint. Via triangulation a proximal anterior lateral portal was established 2 cm proximal and 1 cm anterior to the lateral epicondyle. Blunt dissection was performed with the hemostat and probe introduced into the joint. There was mild plica of the radiocapitellar joint with fraying along the neck of the proximal radius there was no evidence of significant degenerative changes or loose body. Mild synovitis was noted. Partial synovectomy was performed and plica was excised elbow was then placed through full range of motion there was no evidence of impingement attention then turned to the posterior compartment. A posterior central portal was established 3 cm proximal to the olecranon. Via triangulation a posterior lateral portal was established 4 cm proximal. Under direct visualization the olecranon fossa was debrided. There was mild inflammation of the triceps tendon as it inserted to the olecranon no evidence of loose body or degeneration. There was mild impingement of the olecranon along the olecranon fossa but no significant osteophytes of the olecranon tip were identified under direct visualization. Limited debridement was performed including tenosynovium along the triceps. With a arthroscopic bur the olecranon fossa was debrided and elbow was placed through full range of motion to ensure no evidence of impingement attention then turned to ulnar nerve release. A 5 cm incision was placed chcf between the olecranon and medial epicondyle. Blunt dissection was performed. Branches of the medial antebrachial cutaneous nerve were identified and retracted. Ulnar nerve was identified and Mendez's ligament released. There was significant hourglass compression of the ulnar nerve as it crossed through the cubital tunnel prior to entrance deep to the FCU fascia. The FCU fascia was released and any residual fascial bands. Blunt dissection was performed distally to ensure no evidence of residual compression. The ulnar nerve was then neurolysed in a proximal direction small portion of the medial triceps and medial intermuscular septum was released. Via finger d issection it was confirmed adequate release of the ulnar nerve proximally and distally. There was no evidence of subluxation with elbow range of motion. Tourniquet was deflated. Any peripheral bleeding was controlled with bipolar cautery into the wound was dry. Deep soft tissues were closed with interrupted 3-0 Monocryl suture. Skin was closed interrupted 3-0 nylon sutures. 20 cc of 0.5% bupivacaine without epinephrine was injected for postoperative pain control. Attention then turned to hamate hook excision. Previous skin incision was utilized and slightly extended proximally. Blunt dissection was performed. Ulnar artery and superficial sensory branch of the ulnar nerve were identified proximally. The deep motor branch was then identified as it crossed the residual hamate hook entering the pisiform-hamate fascia. This fascial band was then released and ulnar motor nerve neurolysed from proximal to distal. Branch of the abductor digit minimi was also identified and neurolysed. Once adequate mobilization of the superficial sensory nerve and deep motor branch were obtained the fascia overlying the residual hamate hook was identified and bluntly dissected from the remaining bone fragment. Meticulous elevation of the fascia and rounding soft tissues was continued until the remanent bone was adequately excised. Throughout excision tension was released from the sensory and motor branch of the ulnar nerve and attempt to avoid postoperative neuropraxia. The bone edges of the remanent hamate were then smoothed. Remaining fascia was closed with interrupted 3-0 Mo nocryl suture. Any peripheral veins were coagulated with bipolar cautery. There was no evidence of nerve disruption or residual compression after excision. Wound was copiously irrigated with normal saline. Subcutaneous tissues were closed with interrupted 4-0 Monocryl suture. Skin was closed with interrupted horizontal mattress 3-0 nylon suture. 10 cc of 0.5% bupivacaine without epinephrine was injected for postoperative pain control. Wound was dressed with Xeroform 4 x 4's and patient was placed in a soft dressing. Sponge counts, instrument counts, needle counts were correct. Patient was then awoken from anesthesia. Transferred from the operating room table to the operating room stretcher. There was no intraoperative complications patient tolerated procedure well stable to PACU. Postoperative plan: Patient follow-up the office in 2 weeks at which point we will consider beginning occupational therapy for range of motion exercises. Will remain out of work until 2 weeks postoperatively.
--- NOTE | 2019-08-15 10:59 | Discharge Summary ---
Discharge Summary (SDC) - Discharge Final Diagnosis: Left Cubital Tunnel Syndrome Date of Surgery: 08/15/19 Discharge Date: 08/15/19 Condition: Good Treatment or Instructions: Schedule Follow Up w/ Dr. Jim Fuentes @ [facility] for Surgery to be seen in 10-14 days or as scheduled [place]: [place]: [place]: May remove dressing on postop day #3, keep incision covered and dry. Ice and elevate May begin finger range of motion attempting to make full fist. Stool softener of choice when on pain medication. USE OF [id number] IBUPROFEN: Ibuprofen (Advil, Nuprin, Medipren, Motrin IB) is a medication for fever and pain control. In addition, it has anti- inflammatory effects which may be beneficial, especially in the treatment of injuries. It's best to take ibuprofen with food. Persons with ulcer disease or allergy to aspirin should notify their physician of this before taking ibuprofen. Ibuprofen can be given every four to six hours, for a total of four doses daily. Age Pain or fever dose Antiinflammatory dose 6-8 yr 200 mg (1 tab) 200 mg (1 tab) 9-11 yr 200 mg (1 tab) 200-400 mg (1-2 tab) 11-14 yr 200-400 mg (1-2 tab) 400 mg (2 tab) 15-adult 400 mg (2 tab) 600 mg (3 tab) ORAL NARCOTIC MEDICATION: You have been given a prescription for pain control. This medication is a narcotic. It's best taken with food, as nausea can result if taken on an empty stomach. Don't operate machinery or drive within six hours of taking this medication. Do not combine this medicine with alcohol, or with any medication which can cause sedation (such as cold tablets or sleeping pills) unless you get permission from the physician. Narcotics tend to cause constipation. If possible, drink plenty of fluids and eat a diet high in fiber and fruits. Please be aware that prescription narcotics also have the potential for abuse. People become addicted to these medications because of the general sense of wellbeing that they induce. This feeling along with a significant reduction in tension, anxiety, and aggression provides a stimulating seductive quality to these drugs. Once your pain is under control, we encourage you to discard your unused narcotics. Referrals: LUCILLE COLVIN PA [Primary Care Provider] - Discharge Diet: As Tolerated Respiratory Treatments at Home: Deep Breathing/Coughing, Incentive Spirometer Discharge Activity: No Lifting Over 10 Pounds, No Lifting/Push/Pulling Report the Following to Your Physician Immediately: Fever over 101 Degrees, Unusual Bleeding, Redness, Swelling, Warmth, Increased Soreness
[2019-08-15] MEDS ORDERED: OXYCODONE-ACETAMINOPHEN 5-325 MG TABLET ONE (11:50)
[2019-08-15 14:01] VITALS: BP 156/95
== END 2019-08-15 13:20 | disposition home or self-care (01) ==
LOC: OROUT 05:27
PROVIDERS: ATTEND Orthopaedic Surgery
DX: S62.152 Displaced fracture of hook process of hamate [unciform] bone, left wrist (principal); X58.XXXD Exposure to other specified factors, subsequent encounter; G56.22 Lesion of ulnar nerve, left upper limb; M25.822 Other specified joint disorders, left elbow; M77.9 Enthesopathy, unspecified; I10 Essential (primary) hypertension; E66.9 Obesity, unspecified
CPT/HCPCS: 36415 ×2; 84132; 85025; 80048; 01740; 25431; 29837; 64718; J2250; J3490 ×3; J0690; J1100; J3010; J2001; J2765; J2710; J1170; J2405; J7060; J2704; S0028; 1740

== ENCOUNTER 2019-10-21 11:00 | Emergency (ER) | payer BC, OTHER ==
--- NOTE | 2019-10-21 11:15 | ER Document Report ---
ED Medical Screen (RME) - General Chief Complaint: Arm Pain Stated Complaint: ARM PAIN Time Seen by Provider: 10/21/19 11:11 Primary Care Provider: LUCILLE COLVIN PA [Primary Care Provider] - Follow up as needed Mode of Arrival: Ambulatory Information source: Patient Notes: 34-year-old male sent over from [place] for right arm swelling and pain. Patient reports he had labs drawn on Wednesday. He reports pain and swelling started on . Went to see his primary care provider who referred him to the ER for ultrasound for possible blood clot. Denies history of blood clots. Patient has not taken his blood pressure medications. I have greeted and performed a rapid initial assessment of this patient. A comprehensive ED assessment and evaluation of the patient, analysis of test results and completion of the medical decision making process will be conducted by additional ED providers. TRAVEL OUTSIDE OF THE [place] IN LAST 30 DAYS: No - Related Data Allergies/Adverse Reactions: No Known Allergies Allergy (Verified 10/21/19 11:11) Past Medical History - Past Medical History Cardiac Medical History: Reports: Hx Hypertension - NOT TAKING MED DAILY Denies: Hx Coronary Artery Disease, Hx Heart Attack Pulmonary Medical History: Denies: Hx Asthma, Hx Bronchitis, Hx COPD, Hx Pneumonia Neurological Medical History: Denies: Hx Cerebrovascular Accident, Hx Seizures Musculoskeltal Medical History: Denies Hx Arthritis - Immunizations Hx Diphtheria, Pertussis, Tetanus Vaccination: Yes Physical Exam - Vital signs Vitals: Temp Pulse Resp BP Pulse Ox 98.0 F 90 20 160/112 H 96 10/21/19 11:03 10/21/19 11:03 10/21/19 11:03 10/21/19 11:03 10/21/19 11:03 Course - Vital Signs Vital signs: Temp Pulse Resp BP Pulse Ox 98.0 F 90 20 160/112 H 96 10/21/19 11:03 10/21/19 11:03 10/21/19 11:10/21/19 11:03 10/21/19 11:03 Doctor's Discharge - Discharge Referrals: LUCILLE COLVIN PA [Primary Care Provider] - Follow up as needed
[2019-10-21 11:37] LABS: ABSOLUTE BASOPHILS # (AUTO) 0.1 10^3/uL (0.0-0.2); ABSOLUTE EOSINOPHILS # (AUTO) 0.2 10^3/uL (0.0-0.6); ABSOLUTE LYMPHOCYTES (AUTO) 2.3 10^3/uL (0.5-4.7); ABSOLUTE MONOCYTES (AUTO) 1.2 10^3/uL (0.1-1.4); ABSOLUTE NEUT (AUTO) 8.2 10^3/uL (1.7-8.2); EOSINOPHILS % (AUTO) 1.6 % (0-6); HEMATOCRIT 42.7 % (37.9-51.0); HEMOGLOBIN 14.9 g/dL (13.5-17.0); LYMPHOCYTES % (AUTO) 19.2 % (13-45); MEAN CORPUSCULAR HEMOGLOBIN 27.7 pg (27.0-33.4); MEAN CORPUSCULAR HGB CONC 34.9 g/dL (32.0-36.0); MEAN CORPUSCULAR VOLUME 79 fl (80-97); MONOCYTES % (AUTO) 9.8 % (3-13); PLATELET COUNT 283 10^3/uL (150-450); RED BLOOD COUNT 5.38 10^6/uL (4.35-5.55); RED CELL DISTRIBUTION WIDTH 13.3 % (11.5-14.0); SEGMENTED NEUTROPHILS % (AUTO) 68.4 % (42-78); TOTAL CELLS COUNTED % (AUTO) 100 %
[2019-10-21 11:55] LABS: ALBUMIN 4.3 g/dL (3.5-5.0); ALKALINE PHOSPHATASE 49 U/L (38-126); ANION GAP 8 (5-19); ASPARTATE AMINO TRANSFERASE 29 U/L (17-59); BILIRUBIN,DIRECT 0.2 mg/dL (0.0-0.4); BILIRUBIN,TOTAL 0.8 mg/dL (0.2-1.3); BLOOD UREA NITROGEN 13 mg/dL (7-20); CALCIUM 9.3 mg/dL (8.4-10.2); CARBON DIOXIDE 24 mmol/L (22-30); CHLORIDE 104 mmol/L (98-107); GLUCOSE 97 mg/dL (75-110); POTASSIUM 4.2 mmol/L (3.6-5.0); TOTAL PROTEIN 7.6 g/dL (6.3-8.2)
--- NOTE | 2019-10-21 12:49 | RADIOLOGY REPORT (SQ) ---
EXAM DESCRIPTION: VENOUS UNILATERAL UPPER IMAGES COMPLETED DATE/TIME: 10/21/2019 12:30 pm REASON FOR STUDY: RIGHT ARM SWELLING, PAIN COMPARISON: None. TECHNIQUE: Dynamic and static harris scale and color images acquired of the left arm venous system. Se lected spectral images acquired with additional compression and augmentation maneuvers. Images stored on PACS. LIMITATIONS: None. FINDINGS: RIGHT INTERNAL JUGULAR VEIN: Normal phasicity, compression, augmentation. No visualized echogenic material on harris scale. No defects on color images. Comparison opposite side normal. SUBCLAVIAN VEIN: Normal compression, augmentation. No visualized echogenic material on harris scale. No defects on color images. AXILLARY VEIN: Normal compression, augmentation. No visualized echogenic material on harris scale. No d efects on color images. BRACHIAL VEIN: Normal compression, augmentation. No visualized echogenic material on harris scale. No d efects on color images. BASILIC VEIN: Normal compression, augmentation. No visualized echogenic material on harris scale. No de fects on color images. CEPHALIC VEIN: Normal compression, augmentation. No visualized echogenic material on harris scale. No d efects on color images. OTHER: No other significant finding. IMPRESSION: No right upper extremity deep venous thrombosis Report called to Dr Grant in the emergency room TECHNICAL DOCUMENTATION: JOB ID: [id number] 2010 [employer] [facility] [employer] [place]- All Rights Reserved Reading location - IP/workstation name: [email or web address]
[2019-10-21] MEDS ORDERED: DEXAMETHASONE SOD PHOS INJ 10 MG/1 ML VIAL IM ONE (13:09)
[2019-10-21] MEDS ORDERED: KETOROLAC TROMETHAMINE 60 MG/2 ML SDV IM ONE (13:10)
--- NOTE | 2019-10-21 13:18 | RADIOLOGY REPORT (SQ) ---
EXAM DESCRIPTION: HAND RIGHT 2 VIEWS IMAGES COMPLETED DATE/TIME: 10/21/2019 12:54 pm REASON FOR STUDY: swelling COMPARISON: Left forearm two views same date EXAM PARAMETERS: NUMBER OF VIEWS: Three views. TECHNIQUE: AP, lateral and oblique radiographic images acquired of the right hand. LIMITATIONS: None. FINDINGS: MINERALIZATION: Normal. BONES: No acute fracture or dislocation. No worrisome bone lesions. JOINTS: No effusions. SOFT TISSUES: Dorsal hand soft tissue swelling. No foreign body. OTHER: No other significant finding. IMPRESSION: Soft tissue swelling. No radiopaque foreign body. No fracture TECHNICAL DOCUMENTATION: JOB ID: [id number] 2010 [employer]- All Rights Reserved Reading location - IP/workstation name: [email or web address]
--- NOTE | 2019-10-21 13:20 | RADIOLOGY REPORT (SQ) ---
EXAM DESCRIPTION: FOREARM RIGHT IMAGES COMPLETED DATE/TIME: 10/21/2019 12:54 pm REASON FOR STUDY: swelling COMPARISON: Right hand three views same date NUMBER OF VIEWS: Two views. TECHNIQUE: Two radiographic images acquired of the right forearm, including elbow and wrist in at le ast one projection. LIMITATIONS: None. FINDINGS: MINERALIZATION: Normal. BONES: No acute fracture. No worrisome bone lesions. SOFT TISSUES: Diffuse dorsal soft tissue swelling of the distal forearm. No radiopaque foreign body. No soft tissue gas. OTHER: No other significant finding. IMPRESSION: Soft tissue swelling without fracture or retained radiopaque foreign body TECHNICAL DOCUMENTATION: JOB ID: [id number] 2010 [employer]- All Rights Reserved Reading location - IP/workstation name: [email or web address]
--- NOTE | 2019-10-21 13:29 | ER Document Report ---
Entered by GAVI JACOBO SCRIBE 10/21/19 1158 Acting as scribe for:FARIDEH KONG MD ED General - General Chief Complaint: Arm Problem Stated Complaint: ARM PAIN Time Seen by Provider: 10/21/19 11:11 Primary Care Provider: LUCILLE COLVIN PA [Primary Care Provider] - Follow up as needed Mode of Arrival: Ambulatory Information source: Patient Notes: This 34-year-old male presents to the emergency department complaining of right wrist pain that began two days prior to arrival. Patient states that he woke up two days ago, felt the pain and noticed a little swelling but could still use his arm. Patient said that he thought it was arthritis. Patient said the next day, the pain worsened and he was unable to use his arm. Patient described the pain as throbbing, sharp and radiating to his right elbow. Patient said that he was unable to sleep due to the pain last night. Patient explains that the night before the symptoms began, he was grilling outside and went to sleep with no symptoms. He denies any injury to his arm or insect bites. Patient mentions that he had his blood drawn 5 days ago at [facility]. Patient denies headache. TRAVEL OUTSIDE OF THE [place] IN LAST 30 DAYS: No - Related Data Allergies/Adverse Reactions: No Known Allergies Allergy (Verified 10/21/19 11:11) Past Medical History - General Information source: Patient - Social History Smoking Status: Never Smoker Cigarette use (# per day): No Chew tobacco use (# tins/day): No Frequency of alcohol use: Occasional Drug Abuse: None Family History: CAD, DM, Hypertension, Other - Gout Patient has suicidal ideation: No Patient has homicidal ideation: No - Past Medical History Cardiac Medical History: Reports: Hx Hypertension - NOT TAKING MED DAILY Past Surgical History: Reports: Hx Orthopedic Surgery - Left wrist, Left shoulder and left elbow. - Immunizations Hx Diphtheria, Pertussis, Tetanus Vaccination: Yes Review of Systems - Review of Systems Constitutional: No symptoms reported EENT: No symptoms reported Cardiovascular: No symptoms reported Respiratory: No symptoms reported Gastrointestinal: No symptoms reported Genitourinary: No symptoms reported Male Genitourinary: No symptoms reported Musculoskeletal: See HPI, Other - Right arm pain and swelling. Skin: No symptoms reported Hematologic/Lymphatic: No symptoms reported Neurological/Psychological: See HPI. denies: Headaches -: Yes All other systems reviewed and negative Physical Exam - Vital signs Vitals: Temp Pulse Resp BP Pulse Ox 98.0 F 90 20 160/112 H 96 10/21/19 11:03 10/21/19 11:03 10/21/19 11:03 10/21/19 11:03 10/21/19 11:03 - Notes Notes: Physical Exam: General: Alert, appears well. HEENT: Normocephalic. Atraumatic. PERRL. Extraocular movements intact. Oropharynx clear. Neck: Supple. Non-tender. Respiratory: No respiratory distress. Clear and equal breath sounds bilaterally. Cardiovascular: Regular rate and rhythm. Abdominal: Obese. Non-tender. No distension. Normal Bowel Sounds. Back: No gross abnormalities. Extremities: Upper extremities: Normal ROM. Right wrist tender to palpation. Right hand to two-thirds up his elbow has swelling, non-pitting, with no swelling past the elbow. Swelling has associated mild erythema. No open wounds. Lower extremities: Normal inspection. No edema. Normal ROM. Neurological: Normal cognition. AAOx4. Normal speech. Psychological: Normal affect. Normal Mood. Skin: Warm. Dry. Normal color. Course - Re-evaluation Re-evalutation: 10/21/19 13:24 No change in patient's right forearm hand wrist swelling. Discussed with patient that his uric acid is elevated consistent with gout arthritis of the wrist and hand causing his swelling in his hand up to his forearm. - Vital Signs Vital signs: Temp Pulse Resp BP Pulse Ox 98.0 F 90 20 160/112 H 96 10/21/19 11:03 10/21/19 11:03 10/21/19 11:03 10/21/19 11:03 10/21/19 11:03 - Laboratory Result Diagrams: 10/21/19 11:23 10/21/19 11:23 Laboratory results interpreted by me: 10/21/19 10/21/19 10/21/19 11:23 11:23 11:23 WBC 12.0 H MCV 79 L ESR Sodium 136.3 L Uric Acid 9.3 H ALT 67 H 10/21/19 11:23 WBC MCV ESR 24 H Sodium Uric Acid ALT 10/21/19 13:24 Elevated uric acid of 9.3 with a sed rate of 24 that is also elevated. Patient has normal kidney function at this time. - Diagnostic Test Radiology reviewed: Image reviewed, Reports reviewed Radiology results interpreted by me: 10/21/19 13:25 X-rays of hand show soft tissue swelling no fractures no acute arthritic changes noted. X-ray of forearm also shows soft tissue swelling with no acute bony injuries. No foreign body no gas gangrene green noted. Discharge - Discharge Clinical Impression: Acute gouty arthritis Condition: Stable Disposition: HOME, SELF-CARE Additional Instructions: Gout Diet Changing your diet can decrease the uric acid in your blood. High levels of uric acid cause gouty arthritis and uric acid kidney stones. If you have gout, you should avoid meats that are high in purine. Meat products to avoid include liver, kidneys, and brains. In general, poultry is better than red meats. Seafoods to avoid include anchovies, sardines, spaulding, mackerel, and scallops. In addition to limiting purine-rich foods, people with gout should limit protein intake to 10-15% of total calories. Carbohydrate intake should be around 50% of total daily calories. Limit fat intake to 30% of total daily calories. Cholesterol intake should be less than 300 mg/day. Maintain or achieve a healthy body weight. Weight loss should be gradual. Rapid weight loss can actually increase uric acid levels temporarily. Alcohol, especially beer, should be avoided. Get plenty of fluids. This dilutes urinary uric acid, and helps prevent uric acid kidney stones. Drink eight to twelve cups of water daily. Gout You have been diagnosed as having gout. Gout is a problem caused by an excess of uric acid, a natural chemical found in the body. The cause of this disease is unknown. Gout arthritis occurs when crystals of uric acid form in the joints. The big toe is the most common joint involved, but any joint can become affected. Persons with gout may also form uric acid kidney stones, resulting in flank pain and blood in the urine. Nodules of uric acid may form under the skin. The first step of treatment is to decrease the inflammation in the joint with antiinflammatory medication. Medication to lower the uric acid level in the blood may then be prescribed. This medication should be taken regularly, as any sudden change in dosage may provoke an attack of gout. Some foods, such as red meat, can provoke an attack in some gout sufferers. Call the doctor if new symptoms arise, or if you do not improve. Prescriptions: Methylprednisolone [Medrol Dosepack (4 mg/Tab) 21 Tab/Dosepak] 4 mg PO ASDIR PRN #21 tab.ds.pk PRN Reason: Allopurinol [Zyloprim 300 mg Tablet] 300 mg PO DAILY #30 tablet Referrals: LUCILLE COLVIN PA [Primary Care Provider] - Follow up as needed I personally performed the services described in the documentation, reviewed and edited the documentation which was dictated to the scribe in my presence, and it accurately records my words and actions.
[2019-10-21 13:38] VITALS: BP 158/98
== END 2019-10-21 13:37 | disposition home or self-care (01) ==
LOC: ER 11:00
DX: M10.9 Gout, unspecified (principal); M25.531 Pain in right wrist; I10 Essential (primary) hypertension; M79.89 Other specified soft tissue disorders
CPT/HCPCS: 99284; 96372; 36415; 84550; 85025; 85652; 80053; 93971; 73090; 73120; J1885; J1100

== ENCOUNTER 2020-05-21 05:59 | Day surgery (SDC) | payer OTHER, BC ==
[2020-05-16 09:47] LABS: APPEARANCE,URINE CLEAR; BILIRUBIN,URINE NEGATIVE (NEGATIVE); COLOR,URINE YELLOW; GLUCOSE, URINE NEGATIVE (NEGATIVE); KETONES,URINE NEGATIVE (NEGATIVE); LEUKOCYTE ESTERASE,URINE NEGATIVE (NEGATIVE); NITRITE,URINE NEGATIVE (NEGATIVE); PROTEIN,URINE NEGATIVE (NEGATIVE); URINE SPECIFIC GRAVITY 1.017; UROBILINOGEN,URINE NEGATIVE mg/dL (<2.0)
[2020-05-16 10:46] LABS: HEMATOCRIT 46.1 % (37.9-51.0); MEAN CORPUSCULAR HEMOGLOBIN 27.9 pg (27.0-33.4); MEAN CORPUSCULAR HGB CONC 34.7 g/dL (32.0-36.0); MEAN CORPUSCULAR VOLUME 81 fl (80-97); PLATELET COUNT 297 10^3/uL (150-450); RED BLOOD COUNT 5.72 10^6/uL (4.35-5.55); RED CELL DISTRIBUTION WIDTH 13.2 % (11.5-14.0); WHITE BLOOD COUNT 9.1 10^3/uL (4.0-10.5)
[2020-05-16 11:10] LABS: ANION GAP 12 (5-19); BLOOD UREA NITROGEN 12 mg/dL (7-20); CALCIUM 9.7 mg/dL (8.4-10.2); CARBON DIOXIDE 24 mmol/L (22-30); CHLORIDE 102 mmol/L (98-107); GLUCOSE 93 mg/dL (75-110); POTASSIUM 4.7 mmol/L (3.6-5.0)
--- NOTE | 2020-05-16 13:14 | EKG REPORT ---
SEVERITY:- BORDERLINE ECG - SINUS RHYTHM BORDERLINE T ABNORMALITIES, INFERIOR LEADS : Confirmed by: Ruben Hunter MD 16-May-2020 13:14:02
[~2020-05-21 05:59] MED LIST changes: +CEFAZOLIN 2 GM/D5W RTU 2 GM/50 ML RTUPB IV PRN; -CEFAZOLIN SODIUM 2 GM in DEXTROSE 5%-WATER 100 ML IV PRN; -LACTATED RINGERS 1000 ML IV PRN; +RINGERS SOLUTION,LACTATED 1,000 ML IV PRN
[2020-05-21] MEDS ORDERED: CEFAZOLIN 2 GM/D5W RTU 2 GM/50 ML RTUPB IV ONE (06:13)
[2020-05-21] MEDS ORDERED: LIDOCAINE 0.5% INJ-PF (5 MG/ML) 50 ML SDV ONE (06:20)
[2020-05-21] MEDS ORDERED: ONDANSETRON HCL INJ/PF 4 MG/2 ML SDV ONE (06:22)
[2020-05-21] MEDS ORDERED: MIDAZOLAM 2 MG/2 ML INJ ONE (06:22)
[2020-05-21] MEDS ORDERED: DEXAMETHASONE SOD PHOSPHATE INJ 4 MG/1 ML VIAL ONE (06:22)
[2020-05-21] MEDS ORDERED: PROPOFOL INJ 200 MG/20 ML VIAL IV ONE (06:22)
[2020-05-21] MEDS ORDERED: FENTANYL CITRATE INJ/PF 100 MCG/2 ML AMPUL ONE (06:22)
[2020-05-21] MEDS ORDERED: BUPIVACAINE HCL 0.5 % INJ/PF 30 ML SDV ONE (07:39)
[2020-05-21] MEDS ORDERED: ONDANSETRON HCL INJ/PF 4 MG/2 ML SDV IV PRN ×2 (08:30→10:23)
[2020-05-21] MEDS ORDERED: PROMETHAZINE HCL INJ 25 MG/1 ML VIAL IV PRN ×2 (08:30)
[2020-05-21] MEDS ORDERED: MORPHINE SULFATE 10 MG/ML INJ IV PRN ×2 (08:30→10:23)
[2020-05-21] MEDS ORDERED: FENTANYL CITRATE INJ/PF 100 MCG/2 ML AMPUL IV PRN ×3 (08:30)
[2020-05-21] MEDS ORDERED: MEPERIDINE HCL/PF INJ 25 MG/1 ML DISP.SYRIN IV PRN (08:30)
[2020-05-21] MEDS ORDERED: DIPHENHYDRAMINE HCL 50 MG/ML VIAL IV PRN (08:30)
[2020-05-21] MEDS ORDERED: OXYCODONE-ACETAMINOPHEN 5-325 MG TABLET PO PRN (10:23)
--- NOTE | 2020-05-21 10:27 | Discharge Summary ---
Discharge Summary (SDC) - Discharge Final Diagnosis: Left Cubital Tunnel Syndrome Date of Surgery: 05/21/20 Discharge Date: 05/21/20 Condition: Good Treatment or Instructions: Schedule Follow Up w/ Dr. Jim Fuentes @ [facility] to be seen in 10-14 days or as scheduled [place]: [place]: [place]: May remove dressing on postop day #3, keep incision covered and dry. Ice and elevate May begin finger range of motion attempting to make full fist. Stool softener of choice when on pain medication. USE OF [id number] IBUPROFEN: Ibuprofen (Advil, Nuprin, Medipren, Motrin IB) is a medication for fever and pain control. In addition, it has anti- inflammatory effects which may be beneficial, especially in the treatment of injuries. It's best to take ibuprofen with food. Persons with ulcer disease or allergy to aspirin should notify their physician of this before taking ibuprofen. Ibuprofen can be given every four to six hours, for a total of four doses daily. Age Pain or fever dose Antiinflammatory dose 6-8 yr 200 mg (1 tab) 200 mg (1 tab) 9-11 yr 200 mg (1 tab) 200-400 mg (1-2 tab) 11-14 yr 200-400 mg (1-2 tab) 400 mg (2 tab) 15-adult 400 mg (2 tab) 600 mg (3 tab) ORAL NARCOTIC MEDICATION: You have been given a prescription for pain control. This medication is a narcotic. It's best taken with food, as nausea can result if taken on an empty stomach. Don't operate machinery or drive within six hours of taking this medication. Do not combine this medicine with alcohol, or with any medication which can cause sedation (such as cold tablets or sleeping pills) unless you get permission from the physician. Narcotics tend to cause constipation. If possible, drink plenty of fluids and eat a diet high in fiber and fruits. Please be aware that prescription narcotics also have the potential for abuse. People become addicted to these medications because of the general sense of wellbeing that they induce. This feeling along with a significant reduction in tension, anxiety, and aggression provides a stimulating seductive quality to these drugs. Once your pain is under control, we encourage you to discard your unused narcotics. Prescriptions: Oxycodone HCl/Acetaminophen [Percocet 7.5-325 mg Tablet] 1 tab PO Q6 PRN #25 tab PRN Reason: Referrals: LUCILLE COLVIN PA [Primary Care Provider] - Discharge Diet: As Tolerated Respiratory Treatments at Home: Deep Breathing/Coughing, Incentive Spirometer Discharge Activity: No Lifting Over 10 Pounds, No Lifting/Push/Pulling Report the Following to Your Physician Immediately: Fever over 101 Degrees, Unusual Bleeding, Redness, Swelling, Warmth, Increased Soreness
--- NOTE | 2020-05-21 10:48 | Operative Report ---
Operative Report DATE OF SURGERY: 05/21/20 PREOPERATIVE DIAGNOSIS: Left Ulnar Neuropathy POSTOPERATIVE DIAGNOSIS: Same OPERATION: Left Revision cubital tunnel release with submuscular ulnar nerve transposition with placement of Neuro mend wrap SURGEON: NOLAN CHAKRABORTY ANESTHESIA: GA COMPLICATIONS: None ESTIMATED BLOOD LOSS: Minimal PROCEDURE: Indication for above procedure: 35-year-old male who sustained a work-related accident which resulted in multiple upper extremity injuries. Most recent surgery underwent was cubital tunnel release although patient continued to have persistent ulnar neuropathy with sensory involvement at that point we discussed treatment options and decision was made to proceed with revision cubital tunnel release. Risk and benefits were explained patient verbalized understanding consented for surgical procedure. Procedure In Detail: Patient was seen and evaluated in the preoperative holding area. The LEFT upper extremity was initialized and marked. Patient received 2g of Ancef IV for bacterial prophylaxis. Patient was taken back to the operative room where transferred to the operative table and placed under general anesthesia. A surgical team debriefing was performed ensuring all instrumentation was available, the surgical procedure was discussed with possible concerns reviewed. The upper extremity was prepped with ChloraPrep and draped in a sterile fashion. A timeout was done identifying correct patient, procedure and extremity everyone in attendance agree with this and verbalized no concerns. Sterile tourniquet was placed, the extremity was exsanguinated the tourniquet was inflated to 250 mmHg. Previous scar was ellipsed sized and removed. Excision was extended proximally and distally. Significant scar was noted through the out the adipose. Large branch of the medial antebrachial cutaneous nerve was identified 3 cm distal to the medial epicondyle and retracted. The ulnar nerve was palpated encased in scar at the level of the cubital tunnel. Initial nerve dissection was performed along the proximal aspect within [place] tissue. At the level of the medial triceps the ulnar nerve was identified and followed distally. At this level venous branches were identified posterior to the medial intermuscular septum. Once the medial intermuscular septum was excised from proximal to distal. The ulnar nerve was then identified distally. And palpated within the FCU muscle belly. 2 flaps were constructed within the flexor pronator mass distal flap proximally based and proximal flap distally based. The ulnar nerve was then identified within [place] muscle distally. Neurolysis was performed from distal to proximal until the nerve was encased in scar at the medial epicondyle. Meticulous dissection was then performed alternating from proximal to distal in order to adequately release the ulnar nerve from its encased scar bed. Once it was completely freed proximally and distally the posterior motor branch was traced from distal to proximal in order to allow adequate excursion and transposition of the nerve. Throughout the case nerve was intermittently irrigated with saline. Attention then turned to transposition. The T shaped septum within the flexor pronator mass was isolated and excised. Septum between the FDP and FCU was also excised. Once adequate muscular bed was established proceeded with transposition. Vessel loop was placed around the ulnar nerve tracing the ulnar nerve from proximal to distal and a remanent fascial bands were released and nerve was easily transposed within the muscle of the flexor pronator mass. There is no evidence of residual kinking or compression proximally or distally throughout range of motion. There is notable perineural fibrosis at the level of the cubital tunnel. Wound was irrigated with saline. Tourniquet was deflated. Any peripheral bleeding was controlled with bipolar cautery, into the wound was dry. No residual compression was noted proximally with finger dissection or distally. A neuro mend wrap was then placed around the nerve. Fixated proximally and distally with vascular clips excess wrap was then excised. Fascial flaps were then secured with 3-0 Vicryl suture. Elbow was placed through full range of motion there is no evidence of posterior subluxation. No residual kinking was noted proximally and distally. Deep fascial adipose was reapproximated loosely with 3-0 Vicryl suture. 30 cc of 0.5% bupivacaine without epinephrine was injected. Subcutaneous tissues were closed with interrupted 3-0 and 4-0 Monocryl suture. Skin was closed with running subcuticular 4-0 Monocryl reinforced with Dermabond and Steri-Strips. A soft dressing was placed. Sponge counts, instrument counts, needle counts were correct. Patient was then awoken from anesthesia. Transferred from the operating room table to the operating room stretcher. There was no intraoperative complications patient tolerated procedure well stable to PACU. Postop plan: Patient will follow in the office in 2 weeks for wound check. In the meantime he is to begin elbow range of motion but no heavy lifting or weightbearing.
[2020-05-21] MEDS ORDERED: OXYCODONE-ACETAMINOPHEN 5-325 MG TABLET ONE (11:03)
[2020-05-21 12:48] VITALS: BP 140/80
[2020-05-21] MEDS ORDERED: SUCCINYLCHOLINE CHLORIDE INJ 200 MG/10 ML VIAL ONE (14:32)
== END 2020-05-21 12:30 | disposition home or self-care (01) ==
LOC: OROUT 05:59
PROVIDERS: ATTEND Orthopaedic Surgery
DX: G56.22 Lesion of ulnar nerve, left upper limb (principal); Z03.818 Encounter for observation for suspected exposure to other biological agents ruled out; M10.9 Gout, unspecified; I10 Essential (primary) hypertension; Z79.899 Other long term (current) drug therapy
CPT/HCPCS: 93005; 36415; 85027; 87635; 80048; 81001; 93010; 64718; C1889; J2250; J3490 ×2; J1100; J3010; J0330; J2405; J2704; J0690; C9803; 1810